=== PATIENT | female | born 1975 | race Caucasian/White ===

== ENCOUNTER 2016-09-08 17:52 | Emergency (ER) | payer OTHER ==
[~2016-09-08] VITALS: Ht 157.5 cm; Wt 65.8 kg
[~2016-09-08 17:52] MED LIST: BUPROPION HYDR150 MG PO; CELEXA10 MG PO; CELEXA20 MG PO; CLONIDINE HYDR0.1 M1; FISH OIL CONCEN1 SGL PO; FLEXERIL10 MG PO; FLOMAX(MONOGRA0.4 MG PO; FLOMAX0.4 M1 PO; HYDROCODONE/ACE1 TA1 PO; IBU800 MG PO; IBUPROFEN800 MG; LIDODERM 5% PAT1 PAT TOP; LIORESAL 10MG T10 MG PO; MACROBID 100 M100 MG PO; MASON NATURAL O1 SG1 PO; MOBIC7.5 M1 PO; MOTRIN800 MG PO; MULTIVITAMIN1 TAB PO; ONE DAILY MULT1 EAC2 PO; OXYCODON-ACETAMINOPH; PERCOCET 325 MG1 TA2 PO; PERCOCET 7.5-31 EACH PO; PROPRANOLOL HCL10 MG PO; PROTONIX 40MG T40 MG PO; PYRIDIUM100 M1 PO; TORADOL10 MG PO; VITAB121000 PO; VITAMIN D50000 IU PO; ZOFRAN ODT4 MG PO; ZOFRAN ODT4 MG SL
[2016-09-08 18:26] VITALS: BP 132/82
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
[2016-09-08] MEDS ORDERED: CYCLOBENZAPRINE10 M1 PO (19:46)
[2016-09-08] MEDS ORDERED: KETOROLAC TROME10 M1 PO (19:46)
[2016-09-08] MEDS ORDERED: VITAMIN B-121000 MC3 PO (19:54)
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
== END 2016-09-08 20:24 ==
LOC: ERH 17:52
DX: S16.1XXA Strain of muscle, fascia and tendon at neck level, initial encounter (principal); V49.40XA Driver injured in collision with unspecified motor vehicles in traffic accident, initial encounter
CPT/HCPCS: 72050; J1885

== ENCOUNTER 2016-09-18 18:06 | Emergency (ER) | payer OTHER ==
[~2016-09-18] VITALS: Ht 157.5 cm; Wt 65.8 kg
[~2016-09-18 18:06] MED LIST changes: +CYCLOBENZAPRINE10 M1 PO; +KETOROLAC TROME10 M1 PO; +VITAMIN B-121000 MC3 PO
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
[2016-09-18 19:04] LABS: ABSOLUTE BASOPHIL COUNT 0.1 /CUMM (0.0-0.2); ABSOLUTE EOSINOPHIL COUNT 0.2 /CUMM (0.0-0.7); ABSOLUTE GRANULOCYTE CT 6.5 /CUMM (1.4-6.5); ABSOLUTE LYMPH COUNT 2.4 /CUMM (1.2-3.4); ABSOLUTE MONOCYTE COUNT 1.2 /CUMM (0.10-0.60); BASOPHIL % 0.6 % (0.0-2.0); EOSINOPHIL % 2.1 % (0-5); GRANULOCYTE % 62.5 % (42.2-75.2); HEMATOCRIT 42.8 % (37-47); MEAN CORPUSCULAR HGB 30.3 PG (27.0-31.0); MEAN CORPUSCULAR HGB CONC 32.9 G/DL (33.0-37.0); MEAN PLATELET VOLUME 7.1 FL (7.4-10.4); PLATELET COUNT 478 /CUMM (130-400); RBC DISTRIBUTION WIDTH 13.4 % (11.5-14.5); RED BLOOD CELL CT 4.65 /CUMM (4.20-5.40); WHITE BLOOD CELL COUNT 10.3 /CUMM (4.8-10.8)
--- NOTE | 2016-09-18 19:37 | CT SCAN REPORT ---
EXAMINATION: CT ABDOMEN AND PELVIS WITHOUT CONTRAST CLINICAL INFORMATION: Right flank pain COMPARISON: 07/01/2016 pelvic ultrasound and 02/14/2016 CT abdomen pelvis TECHNIQUE: Multidetector volumetric imaging was performed from the superior aspect of the liver through the pubic symphysis. Sagittal and coronal reformatted images were obtained on the technologist's workstation. DLP: 260 mGy-cm FINDINGS: Presence of breathing artifact limits evaluation. LUNG BASES: The visualized lung bases are unremarkable. LIVER, GALLBLADDER, AND BILIARY TREE: The liver is normal in size, shape, and attenuation based on noncontrast images. No biliary ductal dilatation is present. The gallbladder is contracted and cannot be further evaluated. PANCREAS: Unremarkable based on noncontrast images. SPLEEN: Unremarkable based on noncontrast images. ADRENAL GLANDS: Unremarkable. KIDNEYS AND URETERS: The kidneys are normal in size, shape, and attenuation. No hydronephrosis, hydroureter, or calculi seen. No perinephric stranding. No stone is seen in the course of ureters. BLADDER: The urinary bladder is partially full. No bladder stone. GASTROINTESTINAL TRACT: The stomach, duodenum and loops of the small bowel and colon are unremarkable. The appendix is visualized and within normal limits. ABDOMINAL WALL: No significant hernia is appreciated. LYMPH NODES: Normal. VASCULAR: Unremarkable. PELVIC VISCERA: There is an enlarged fibromatous uterus which measures about 12.8 cm in CC, 9.8 cm in AP and 9.5 cm in transverse diameters. There is an IUD in place, which evaluation of its position within the endometrial cavity is not possible based on this noncontrast CT scan. Evaluation of adnexa is also significantly limited. OSSEOUS STRUCTURES: Unremarkable. IMPRESSION: 1. No urinary stone. 2. Normal appendix. 3. Enlarged fibromatous uterus. An IUD is in place, which its position cannot be evaluated based on this exam.
[2016-09-18] MEDS ORDERED: VICODIN 5-3001 EACH PO (20:25)
[2016-09-18] MEDS ORDERED: ZOFRAN ODT4 M1 SL (20:25)
[2016-09-18 20:36] VITALS: BP 138/69
== END 2016-09-18 20:37 ==
LOC: ERH 18:06
PROVIDERS: Physician Assistant
DX: R10.31 Right lower quadrant pain (principal); R31.9 Hematuria, unspecified
CPT/HCPCS: 74176; 81001; 81025; 96374; 96375; J1885; J2405

== ENCOUNTER 2016-11-01 18:15 | Emergency (ER) | payer OTHER ==
[~2016-11-01] VITALS: Ht 157.5 cm; Wt 63.5 kg
[~2016-11-01 18:15] MED LIST changes: +VICODIN 5-3001 EACH PO; +ZOFRAN ODT4 M1 SL
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
--- NOTE | 2016-11-01 20:20 | CT SCAN REPORT ---
EXAMINATION: CT MAXILLOFACIAL WITHOUT CONTRAST CLINICAL INFORMATION: Right-sided orbital and facial trauma. COMPARISON: CT head of 07/20/2010. TECHNIQUE: Multidetector helical imaging of facial bones and orbits was performed in the axial plane with generation of coronal and sagittal reformatted images. DLP: 737.93 mGy-cm. FINDINGS: There are displaced fractures of the inferior wall of the right orbit with fracture fragments and small amount of retrobulbar fat protruding into the right maxillary sinus. There is likely minimal entrapment of the small portion of the inferior aspect of the inferior rectus muscle. A trace amount of air is noted around the muscle in this region at the fracture site. The right globe, remainder of the muscle and optic nerve are intact and unremarkable. Moderate soft tissue swelling is noted over the right orbital and periorbital region as well as over the right zygomatic arch and adjacent frontotemporal regions. No additional fractures of the facial bones are noted. The nasal bones are intact. Nasal septum is intact. Temporomandibular joint alignments are normal. There is a small air-fluid level in the right maxillary sinus likely reflect hemo sinus. Additionally, there is mild mucosal thickening of the bilateral maxillary sinuses. Mild mucosal thickening of the ethmoid air cells. The frontal and sphenoid sinuses are well-aerated. The mastoid air cells and middle ear cavities are well-aerated. Left bony orbit and intraorbital structures are unremarkable. Limited evaluation of the visualized brain parenchyma is unremarkable. IMPRESSION: Displaced fractures of the inferior wall of the right orbit with protrusion of the small fracture fragments as well as small amount of retrobulbar fat into the sinus with minimal entrapment of the inferior rectus muscle. Moderate soft tissue swelling and hematoma over the right orbital and periorbital region as well as over the right frontotemporal region laterally. No additional fractures of the facial bones. Small air-fluid level in the right maxillary sinus likely represents hemo sinus.
[2016-11-01] MEDS ORDERED: AUGMENTIN 500-1 EACH PO (20:45)
[2016-11-01] MEDS ORDERED: BACLOFEN10 M1 PO (20:55)
[2016-11-01 20:56] VITALS: BP 145/70
[2016-11-01] MEDS ORDERED: IBUPROFEN800 M1 PO (20:56)
== END 2016-11-01 20:57 ==
LOC: ERH 18:15
DX: S02.81XA Fracture of other specified skull and facial bones, right side, initial encounter for closed fracture (principal); S01.81XA Laceration without foreign body of other part of head, initial encounter; H11.31 Conjunctival hemorrhage, right eye; Y04.8XXA Assault by other bodily force, initial encounter; Y92.9 Unspecified place or not applicable; Y93.9 Activity, unspecified
CPT/HCPCS: 81025

== ENCOUNTER 2016-11-17 21:19 | Emergency (ER) | payer OTHER ==
[~2016-11-17] VITALS: Ht 157.5 cm; Wt 65.8 kg
[~2016-11-17 21:19] MED LIST changes: +AUGMENTIN 500-1 EACH PO; +BACLOFEN10 M1 PO; +IBUPROFEN800 M1 PO
[2016-11-17 21:44] VITALS: BP 144/90
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
[2016-11-17] MEDS ORDERED: DILAUDID2 M1 PO (22:41)
== END 2016-11-17 22:51 ==
LOC: ERH 21:19
DX: S02.81XD Fracture of other specified skull and facial bones, right side, subsequent encounter for fracture with routine healing (principal)
CPT/HCPCS: 96372